=== PATIENT | female | born 1995 | race Caucasian/White ===

== ENCOUNTER 2022-11-09 08:45 | Inpatient (IN) | payer OTHER, SELFPAY ==
[2022-11-09] MEDS ORDERED: Lidocaine 1% (PF) 30 ML VIAL SC PRN (08:47)
[2022-11-09] MEDS ORDERED: HYDROcodone/Acetaminophen 5/325 mg Tablet PO PRN ×4 (08:47→22:50)
[2022-11-09] MEDS ORDERED: Docusate 100 MG CAP PO PRN (08:47)
[2022-11-09] MEDS ORDERED: hydrALAZINE 20 MG/ML VIAL SLOW IVP PRN ×2 (08:47→22:50)
[2022-11-09] MEDS ORDERED: Misoprostol 200 MCG TAB PR PRN (08:47)
[2022-11-09] MEDS ORDERED: Diphenoxylate HCl/Atropine Tablet PO PRN ×2 (08:47)
[2022-11-09] MEDS ORDERED: Acetaminophen 500 MG TAB PO PRN (08:47)
[2022-11-09] MEDS ORDERED: Ibuprofen 800 MG TAB PO PRN (08:47)
[2022-11-09] MEDS ORDERED: Butorphanol Tartrate 1 MG/ML VIAL SLOW IVP PRN (08:47)
[2022-11-09] MEDS ORDERED: Promethazine HCl 25 MG/ML VIAL IM PRN ×2 (08:47→13:54)
[2022-11-09] MEDS ORDERED: Ondansetron PF 4 MG/2 ML Vial IVP PRN ×3 (08:47→22:50)
[2022-11-09] MEDS ORDERED: NS w/ Oxytocin 30 units 500 ML IV SCH ×3 (09:00→23:00)
[2022-11-09] MEDS ORDERED: Gentamicin 80 MG/2 ML VIAL IVPB SCH (09:00)
[2022-11-09] MEDS: Lactated Ringer's 1,000 ML IV SCH ×2 (09:25→10:31)
[2022-11-09 10:08] VITALS: BMI 34.5
[2022-11-09 10:12] LABS: Hemoglobin 10.5 g/dL (12.0-15.5); Mean Corpuscular HGB CONC 32.9 g/dL (32.0-36.0); Mean Corpuscular Hemoglobin 26.4 pg (27.0-33.0); Mean Corpuscular Volume 80.2 fl (81.6-98.3); Mean Platelet Volume 10.8 fl (7.4-10.4); Platelet Count 195 10x3/uL (150-450); RBC Distribution Width 14.6 % (11.5-14.5); Red Blood Cell (RBC) Count 3.98 10x6/uL (3.90-5.03); White Blood Cell (WBC) Count 7.1 10x3/uL (3.5-10.5)
[2022-11-09 10:41] LABS: SARS-CoV-2 NAA Rapid Test Not Detected (NotDetected)
[2022-11-09 10:56] LABS: HBSAg Index 0.16 S/CO (0-0.99); HIV (1/2) Antibody/Antigen Non-Reactive (NonReactive); HIV 1/2 INDEX 0.08 S/CO (<1.00); Hep B Surf Ag Non-Reactive S/CO (NonReactive)
[2022-11-09 10:57] LABS: Syphilis Antibody Nonreactive (Nonreactive); Syphilis Antibody Index 0.04 S/CO (<1.00 Non-Reactive)
[2022-11-09] MEDS ORDERED: Clindamycin/D5W 900 MG in Premix Bag 1 BAG IVPB SCH (11:00)
[2022-11-09] MEDS ORDERED: Bupivacaine 0.25% HCL 30 ML VIAL ONE (13:00)
[2022-11-09] MEDS ORDERED: Fentanyl 2 mcg/Bup 0.1% Cadd 100 ML ONE (13:14)
[2022-11-09] MEDS ORDERED: Naloxone HCl 0.4 mg/ml Vial IVP PRN ×2 (13:54)
[2022-11-09] MEDS ORDERED: Moisturizing Cream (Eucerin) 113 GM JAR TOP PRN (13:54)
[2022-11-09] MEDS ORDERED: Lactated Ringer's 500 ML IV PRN (13:54)
[2022-11-09] MEDS ORDERED: Acetaminophen 325 MG TAB PO PRN (13:54)
[2022-11-09] MEDS ORDERED: diphenhydrAMINE 50 MG/ML VIAL IVP PRN (13:54)
[2022-11-09] MEDS ORDERED: ePHEDrine Sulfate 50 MG/10 ML VIAL SLOW IVP PRN (13:54)
[2022-11-09] MEDS ORDERED: Fentanyl 2 mcg/Bupivacaine 0.1% Cassette 100 ML EPIDURAL SCH (14:00)
[2022-11-09] MEDS ORDERED: Communication Order-Pharmacy FS SCH (14:00)
[2022-11-09] MEDS: Clindamycin/D5W 900 MG in Premix Bag 1 BAG IVPB SCH (16:59)
[2022-11-09] MEDS ORDERED: Clindamycin/D5W 300 MG/50 ML BAG IVPB SCH (17:00)
[2022-11-09] MEDS ORDERED: diphenhydrAMINE 25 MG CAP PO PRN (22:50)
[2022-11-09] MEDS ORDERED: Bisacodyl 10 MG SUPP PR PRN (22:50)
[2022-11-09] MEDS ORDERED: Lanolin Ointment 7 GM TUBE TOP PRN (22:50)
[2022-11-09] MEDS ORDERED: Preparation H Ointment 28 GM TUBE PR PRN (22:50)
[2022-11-09] MEDS ORDERED: Zolpidem Tartrate 5 MG TAB PO PRN (22:50)
[2022-11-09] MEDS ORDERED: Misoprostol 200 MCG TAB VAG PRN (22:50)
[2022-11-09] MEDS ORDERED: Benzocaine-Menthol 82.5 ML CAN TOP PRN (22:50)
[2022-11-09] MEDS ORDERED: Boostrix 0.5 ML (Tdap) VIAL (>/=7 yrs of age) IM ONE (22:50)
[2022-11-09] MEDS ORDERED: Milk Of Magnesia 30 ML UDCUP PO PRN (22:50)
[2022-11-09] MEDS ORDERED: Witch Hazel-Glycerin 1 EACH JAR TOP PRN (22:51)
[2022-11-09] MEDS ORDERED: Ibuprofen 800 MG TAB PO SCH (23:15)
[2022-11-10 04:25] LABS: #Eosinphils 0.1 10x3/uL (0.0-0.5); #Monocytes 0.9 10x3/uL (0.0-1.1); #Neutrophils 9.5 10x3/uL (1.5-8.4); %Basophils 0.3 % (0.0-2.0); %Eosinophils 0.5 % (0.0-6.0); %Lymphocytes 13.8 % (18.0-47.0); %Monocytes 7.5 % (0.0-10.0); %Neutrophils 77.5 % (40.0-75.0); Hemoglobin 9.9 g/dL (12.0-15.5); Mean Corpuscular HGB CONC 32.9 g/dL (32.0-36.0); Mean Corpuscular Hemoglobin 26.1 pg (27.0-33.0); Mean Corpuscular Volume 79.2 fl (81.6-98.3); Mean Platelet Volume 10.5 fl (7.4-10.4); Platelet Count 188 10x3/uL (150-450); RBC Distribution Width 14.7 % (11.5-14.5); White Blood Cell (WBC) Count 12.2 10x3/uL (3.5-10.5)
[2022-11-10] MEDS: Ibuprofen 800 MG TAB PO SCH ×3 (05:37→21:32)
[2022-11-10] MEDS: Ferrous Sulfate 325 MG TAB PO SCH ×2 (07:55→18:38)
[2022-11-10] MEDS ORDERED: Prenatal Vitamin 1 TAB PO SCH (09:00)
[2022-11-10] MEDS: Clindamycin/D5W 900 MG in Premix Bag 1 BAG IVPB SCH (10:32)
[2022-11-10] MEDS: Prenatal Vitamin 1 TAB PO SCH (10:33)
[2022-11-10] MEDS: Docusate 100 MG CAP PO SCH ×2 (10:33→21:32)
[2022-11-11] MEDS: Ibuprofen 800 MG TAB PO SCH (05:33)
[2022-11-11 08:22] VITALS: BP 106/58; TEMP 97.7
[2022-11-11] MEDS: Ferrous Sulfate 325 MG TAB PO SCH (08:55)
[2022-11-11] MEDS: Docusate 100 MG CAP PO SCH (08:56)
[2022-11-11] MEDS: Prenatal Vitamin 1 TAB PO SCH (08:56)
== END 2022-11-11 13:40 | disposition home or self-care (01) | DRG 807 ==
LOC: CSHLD 08:45 → CSHPP 11-10 01:07
PROVIDERS: ADMIT Obstetrics & Gynecology; ATTEND Obstetrics & Gynecology
PROC: 10D07Z6 Extraction of Products of Conception, Vacuum, Via Natural or Artificial Opening (ICD-10-PCS; principal; 2022-11-09)
PROC: 10907ZC Drainage of Amniotic Fluid, Therapeutic from Products of Conception, Via Natural or Artificial Opening (ICD-10-PCS; 2022-11-09)
PROC: 0W8NXZZ Division of Female Perineum, External Approach (ICD-10-PCS; 2022-11-09)
DX: O99.824 Streptococcus B carrier state complicating childbirth (principal); Z37.0 Single live birth; Z3A.37 37 weeks gestation of pregnancy; Z20.822 Contact with and (suspected) exposure to COVID-19; Z86.16 Personal history of COVID-19; D64.9 Anemia, unspecified; O99.02 Anemia complicating childbirth; F41.9 Anxiety disorder, unspecified; O36.63X0 Maternal care for excessive fetal growth, third trimester, not applicable or unspecified; O99.344 Other mental disorders complicating childbirth; Z79.82 Long term (current) use of aspirin; Z88.0 Allergy status to penicillin; Z88.2 Allergy status to sulfonamides; O32.8XX0 Maternal care for other malpresentation of fetus, not applicable or unspecified; O76 Abnormality in fetal heart rate and rhythm complicating labor and delivery
CPT/HCPCS: 36415; 51702; 85025; 85027; 86780; 86850; 86900; 86901; 87340; 87389; J1580; J2001; J2405; J2590; J3490; J7120; S0020; U0002

== ENCOUNTER 2025-10-18 19:21 | Day surgery (SDC) | payer BC ==
[2025-10-18] MEDS ORDERED: hydrALAZINE 20 MG/ML VIAL SLOW IVP PRN (19:39)
[2025-10-18] MEDS: Cyclobenzaprine 10 MG TAB PO SCH (20:36)
[2025-10-18] MEDS: Acetaminophen 500 MG TAB PO SCH (20:36)
[2025-10-18 21:25] LABS: Glucose, Urine (Dipstick) Normal (Negative); Leukocyte Negative (Negative); Protein, Urine (Dipstick) Negative (Neg-Trace); Specific Gravity, Urine 1.015 (1.005-1.030)
[2025-10-18 21:42] LABS: Bacteria/HPF 2+ HPF (None Seen); CAUTI Indications for Culture Pregnancy; Mucous/LPF 2+ LPF (<2+); RBC/HPF 0-3 HPF (0-3); WBC/HPF 0-3 HPF (0-3)
[2025-10-18 21:44] LABS: Urine Culture Reflex Yes Yes
[2025-10-18] MEDS: cefTRIAXone\\ROCEPHIN 2 GM in Sodium Chloride 0.9% 100 ML IVPB SCH (23:02)
[2025-10-18] MEDS: NIFEdipine 10 MG CAP PO SCH (23:02)
== END 2025-10-19 00:18 | disposition home or self-care (01) ==
LOC: CSHLD/OP 19:21
PROVIDERS: ATTEND Obstetrics & Gynecology
DX: O47.03 False labor before 37 completed weeks of gestation, third trimester (principal); O23.43 Unspecified infection of urinary tract in pregnancy, third trimester; N39.0 Urinary tract infection, site not specified; Z88.1 Allergy status to other antibiotic agents; Z88.0 Allergy status to penicillin; Z88.2 Allergy status to sulfonamides; Z3A.33 33 weeks gestation of pregnancy; Z79.899 Other long term (current) drug therapy
CPT/HCPCS: 81001; 87086; 96360; 96361; 99285; J0696